=== PATIENT | female | born 1995 | race Caucasian/White ===

== ENCOUNTER 2018-09-09 10:54 | Emergency (ER) | payer SELFPAY ==
[~2018-09-09] VITALS: Ht 175.3 cm; Wt 65.9 kg
[~2018-09-09 10:54] MED LIST: IRON325 M1 PO; MULTIPLE VITAMI1 TAB PO; MVI; NO HOME MEDICATIONS; PRENATAL MVI
[2018-09-09 11:01] VITALS: TEMP 99
[2018-09-09 14:31] VITALS: BP 106/70; PULSE 92
== END 2018-09-09 14:45 | disposition home or self-care (01) ==
LOC: COL.ER 10:54
DX: J02.9 Acute pharyngitis, unspecified (principal); J40 Bronchitis, not specified as acute or chronic
CPT/HCPCS: J1100

== ENCOUNTER 2019-12-09 11:32 | Emergency (ER) | payer OTHER ==
[~2019-12-09] VITALS: Ht 177.8 cm; Wt 61.4 kg
[2019-12-09 12:19] VITALS: BP 107/66; TEMP 97.6
[2019-12-09] MEDS ORDERED: ZITHROMAX Z PA250 MG PO (13:31)
[2019-12-09 13:50] VITALS: PULSE 82
== END 2019-12-09 14:00 | disposition home or self-care (01) ==
LOC: COL.ER 11:32
DX: J20.9 Acute bronchitis, unspecified (principal); J06.9 Acute upper respiratory infection, unspecified

== ENCOUNTER 2021-06-16 18:25 | Emergency (ER) | payer SELFPAY ==
[~2021-06-16] VITALS: Ht 177.8 cm; Wt 64.5 kg
[~2021-06-16 18:25] MED LIST changes: +ZITHROMAX Z PA250 MG PO
[2021-06-16 19:44] VITALS: TEMP 98.1
[2021-06-16 20:00] VITALS: BP 121/87; PULSE 69
== END 2021-06-16 20:15 | disposition home or self-care (01) ==
LOC: COL.ER 18:25
DX: S99.921A Unspecified injury of right foot, initial encounter (principal); Z23 Encounter for immunization; W20.8XXA Other cause of strike by thrown, projected or falling object, initial encounter

== ENCOUNTER 2021-07-01 12:27 | Emergency (ER) | payer BC ==
[~2021-07-01] VITALS: Ht 177.8 cm; Wt 65.9 kg
[2021-07-01 12:32] VITALS: TEMP 98.8
[2021-07-01] MEDS ORDERED: WELLBUTRIN XL150 MG PO (12:36)
[2021-07-01 13:05] LABS: COLLECTION METHOD CLEAN CATCH
[2021-07-01 13:09] LABS: BASO % 0.4 % (0.0-2.0); EOS % 0.4 % (0-4.0); GRAN # 8.4 (1.4-6.5); GRAN % 79.1 % (42.2-75.2); HEMOGLOBIN 11.8 g/dl (12.5-16.0); LYMPH # 1.5 (1.2-3.4); LYMPH % 13.7 % (20.0-51.0); MEAN CELL VOLUME 87 fl (80.0-100.0); MEAN CORPUSCULAR HEMOGLOBIN 28 pg (27.0-31.0); MEAN CORPUSCULAR HGB CONC 32 g/dl (33.0-37.0); MEAN PLATELET VOLUME 11.2 fl (7.4-10.4); MONO # 0.6 (0.1-0.6); PLATELET COUNT 252 K/mm3 (130-400); RED BLOOD COUNT 4.21 M/mm3 (4.10-5.30); REDCELL DISTRIBUTION WIDTH-CV 14.6 % (11.5-14.5)
[2021-07-01 13:11] LABS: HEMATOCRIT 36.4 % (37.0-47.0)
[2021-07-01 13:16] LABS: MUCOUS Present /lpf; PH 6 (5-8); URINE APPEARANCE Cloudy; URINE BACTERIA None Seen /hpf; URINE BILIRUBIN Negative (NEGATIVE); URINE BLOOD 3+ (NEGATIVE); URINE COLOR Yellow; URINE GLUCOSE Negative (NEGATIVE); URINE KETONE Negative (NEGATIVE); URINE LEUKOCYTE ESTERASE Negative (NEGATIVE); URINE NITRATE Negative (NEGATIVE); URINE PROTEIN(semi-quant) 2+ (NEGATIVE); URINE RBC >50 /hpf; URINE UROBILINOGEN Negative (NEGATIVE)
[2021-07-01 13:24] LABS: ALBUMIN 4.6 gm/dL (3.5-5.0); BILIRUBIN,TOTAL 1.2 mg/dL (0.0-1.0); C-REACTIVE PROTEIN 0.6 mg/dL (0.0-0.9); CALCIUM 9.6 mg/dL (8.4-10.2); CREATININE, serum 0.73 (0.52-1.25); POTASSIUM 4.2 mmol/L (3.4-5.0); TOTAL PROTEIN 7.9 gm/dL (6.4-8.2)
[2021-07-01 14:10] VITALS: BP 97/55; PULSE 60
== END 2021-07-01 14:12 | disposition home or self-care (01) ==
LOC: COL.ER 12:27
PROVIDERS: Nurse Practitioner
DX: N94.6 Dysmenorrhea, unspecified (principal); F32.9 Major depressive disorder, single episode, unspecified; Z32.02 Encounter for pregnancy test, result negative; Z79.899 Other long term (current) drug therapy
CPT/HCPCS: J1885